=== PATIENT | male | born 1965 | race Caucasian/White ===

== ENCOUNTER 2018-08-23 16:06 | Emergency (ER) | payer OTHER ==
[~2018-08-23] VITALS: Ht 175.3 cm; Wt 65.8 kg
--- NOTE | 2018-08-23 16:29 | NUR ---
ACCOUNTING ADVISORY SERVICES MANAGER ordered not to administer IM Tetanus vaccination. Patient is up to date and states he had one less than one year ago.
[2018-08-23] MEDS ORDERED: TETANUS/DIPHTHERIA TOX ADULT 0.5 ML SYR IM ONE (16:30)
== END 2018-08-23 16:35 | disposition home or self-care (01) ==
LOC: ER 16:06
DX: S61.011A Laceration without foreign body of right thumb without damage to nail, initial encounter (principal); W29.8XXA Contact with other powered hand tools and household machinery, initial encounter; Y92.008 Other place in unspecified non-institutional (private) residence as the place of occurrence of the external cause
CPT/HCPCS: 99282